=== PATIENT | female | born 1940 | race Caucasian/White ===

== ENCOUNTER 2016-11-15 08:50 | Outpatient (CLI) | payer MEDICARE, OTHER ==
--- NOTE | 2016-11-15 10:43 | MMO ---
BILATERAL SCREENING MAMMOGRAM: INDICATION: Annual exam. COMPARISON: Prior exam dated 10/12/15 and 04/04/08. FINDINGS: The interpretation of this examination was assisted with computer-aided detection. There are scattered fibroglandular elements. There is a cluster of suspicious calcifications present within the upper outer aspect of the right b reast in the 10 o'clock position. There is an associated focal mass associated with the calcificati ons measuring 1.3 cm. There is a spiculated mass within the central posterior right breast measuring 1.3 cm. There are scattered benign-appearing calcifications. IMPRESSION: 1. BI-RADS category 0 - incomplete evaluation - need for additional imaging. There is a cluster of calcifications seen within the right breast 10 o'clock position with associated mass. Spot magnifi cation compression views recommended. Ultrasound may be necessary for further evaluation. 2. Suspected spiculated mass within the right breast central position, posterior depth. Spot magni fication compression views recommended. Ultrasound may be necessary for further evaluation. BIRADS 0: Incomplete: Need Additional Imaging Evaluation and/or Prior Mammograms for Comparison POS: [facility]
== END 2016-11-15 08:51 | disposition home or self-care (01) ==
LOC: SCSMAMMO 08:50
PROVIDERS: ATTEND Family Medicine
DX: Z12.31 Encounter for screening mammogram for malignant neoplasm of breast (principal)
CPT/HCPCS: 77067; G0202

== ENCOUNTER → 2016-12-07 | Day surgery (SDC) | payer MEDICARE, OTHER ==
--- NOTE | 2016-12-07 09:33 | MMO ---
STEREOTACTIC BIOPSY OF THE RIGHT BREAST: History: Right breast calcifications. Comparison: 11-23-16 FINDINGS: Successful right breast stereotactic biopsy. Calcifications are present in the biopsy sample. Biopsy clip was placed. Post procedure mammogram demonstrates the clip in the appropriate position. Technique: Consent obtained for right breast stereotactic biopsy. Patient was placed in the prone position on t he stereotactic table. Right breast was prepped and draped in sterile fashion. The area of concern w as identified. Skin was prepped and draped in sterile fashion. 1% Lidocaine was used for local anest hesia. The stereotactic needle was confirmed in position, pre and post firing. A stereotactic biopsy was performed. A total of 6 10-gauge core samples were obtained. Samples were radiographed. Calcifi cations are present. Biopsy clip was placed. Post clip images demonstrate the clips to be outside th e needle. Patient tolerated the procedure well. No immediate or post procedure complication. POST PROCEDURE MAMMOGRAM: Two views of the right breast demonstrate a surgical clip, appropriately located. IMPRESSION: Successful right breast stereotactic biopsy. POS: [facility]
== END ==
LOC: MAMMO 06:58
PROVIDERS: ATTEND Family Medicine
PROC: 0HBT3ZX Excision of Right Breast, Percutaneous Approach, Diagnostic (ICD-10-PCS; principal; 2016-12-07)
DX: D05.11 Intraductal carcinoma in situ of right breast (principal)
CPT/HCPCS: 19081; 76098; 88305; 88341; 88342; G0206

== ENCOUNTER 2016-12-19 11:58 | Outpatient (CLI) | payer MEDICARE, OTHER ==
[2016-12-19 15:00] LABS: #Basophils 0.1 thou/uL (0.0-0.2); #Eosinphils 0.2 thou/uL (0.0-0.7); #Lymphocytes 2.5 thou/uL (1.20-3.40); #Monocytes 0.7 thou/uL (0.11-0.59); #Neutrophils 4.1 thou/uL (1.40-6.50); %Basophils 0.9 % (0.0-1.0); %Eosinophils 2.8 % (0.0-10.0); %Lymphocytes 33.5 % (21.0-51.0); Hematocrit 39.8 % (36.0-47.0); Mean Platelet Volume 8.9 fL (7.4-10.4); Red Blood Cell (RBC) Count 3.91 mill/uL (4.20-5.40); White Blood Cell (WBC) Count 7.5 thou/uL (4.8-10.8)
[2016-12-19 15:19] LABS: Anion Gap 17 mmol/L (10-20); BUN (Urea Nitrogen) 27 mg/dL (9.8-20.1); Calc. Creatinine Clearance 0 mL/min (70-130); Calcium 10.3 mg/dL (7.8-10.44); Carbon Dioxide 23 mmol/L (23-31); Chloride 105 mmol/L (98-107); Estimated GFR-MDRD 61
--- NOTE | 2016-12-19 16:18 | RAD ---
PA AND LATERAL CHEST: Indication: Pre-operative. Comparison: None. FINDINGS: There is a calcified granuloma within the left upper lobe. There is a calcified lymph node within the left AP window. Calcified granuloma is seen within the right upper lobe. No confluent airspace opaci ty or pleural effusion is evident. There is multilevel spondylosis of the thoracic spine. No acute os seous abnormality is evident. IMPRESSION: No acute cardiopulmonary abnormality. POS: [facility]
--- NOTE | 2016-12-28 21:41 | EKG ---
Test Reason : Blood Pressure : / mmHG Vent. Rate : 056 BPM Atrial Rate : 056 BPM P-R Int : 186 ms QRS Dur : 106 ms QT Int : 452 ms P-R-T Axes : 041 064 034 degrees QTc Int : 436 ms Sinus bradycardia Otherwise normal ECG No previous ECGs available Confirmed by GLADYS RIVERA (2) on 12/28/2016 9:41:15 PM Referred By: YECENIA Confirmed By:GLADYS RIVERA
== END 2016-12-19 11:59 | disposition home or self-care (01) ==
LOC: LABBT 11:58
PROVIDERS: ATTEND Specialist
DX: Z01.818 Encounter for other preprocedural examination (principal); D05.11 Intraductal carcinoma in situ of right breast
CPT/HCPCS: 71020; 80048; 85025; 93005; 93010

== ENCOUNTER 2016-12-29 06:53 | Day surgery (SDC) | payer MEDICARE, OTHER ==
[2016-12-19 12:04] VITALS: BMI 31.9
[2016-12-29] MEDS ORDERED: Fentanyl 100 MCG/2 ML VIAL ONE ×3 (10:47→11:41)
[2016-12-29] MEDS ORDERED: Midazolam HCl 2 mg/2 ml Vial ONE (10:47)
[2016-12-29] MEDS ORDERED: Bupivacaine/Epinephrine 0.25% 30 ML VIAL ONE ×2 (10:56→12:54)
[2016-12-29] MEDS ORDERED: Isosulfan Blue 50 MG/5 ML VIAL ONE (10:56)
[2016-12-29] MEDS ORDERED: CEFAZOLIN/Water 2 GM/20 ML SYRINGE ONE (11:16)
[2016-12-29] MEDS ORDERED: Ketorolac Tromethamine 30 MG/ML VIAL ONE (11:17)
[2016-12-29] MEDS ORDERED: Dexamethasone 20 MG/5 ML VIAL ONE (11:47)
[2016-12-29] MEDS ORDERED: Propofol 200 MG/20 ML VIAL ONE (11:47)
[2016-12-29] MEDS ORDERED: ePHEDrine/0.9% NaCl/PF SYRINGE 50 mg/10 ml ONE (11:47)
[2016-12-29] MEDS ORDERED: Ondansetron HCl/PF 4 MG/2 ML Vial ONE (11:47)
[2016-12-29] MEDS ORDERED: Lidocaine 2% PF 10 ML AMP (For Epidural Use) ONE (11:47)
[2016-12-29] MEDS ORDERED: PHENYLEPHRINE-NS 100 MCG/ML 10 ML SYRINGE ONE (11:47)
--- NOTE | 2016-12-29 12:21 | NM ---
LYMPHOSCINTIGRAPH RIGHT BREAST: RADIOPHARMACEUTICAL: 0.4 mCi Technetium 99m filtered sulfur colloid injected intradermal. CLINICAL HISTORY: DCIS, status post mammographic-guided needle localization. PROCEDURE: Informed consent was obtained. The patient was escorted to the nuclear medicine procedural suite. T he left breast was prepped and draped in standard sterile fashion. Subsequently, 4 separate intrader mal injections totally 0.4 mCi Technetium 99m sulfur colloid were injected into the periareolar regio n of the left breast. Subsequent scintigraphic imaging does yield a small focus of radiotracer activ ity within the deep upper left breast not well seen on the frontal view due to overlying injection ac tivity. This does indicate a lymph node. IMPRESSION: Right breast lymphoscintigraphy as above. POS: [facility]
--- NOTE | 2016-12-29 14:02 | MMO ---
SPECIMEN RADIOGRAPH: Date: 12/29/16 HISTORY: Evaluate specimen for localized clip. FINDINGS: Specimen radiograph is provided. A few punctate calcifications are seen in the specimen, hear the H-I , 6-7 location. The post biopsy localized clip is in the specimen as well. IMPRESSION: Specimen radiograph as above. POS: [facility]
--- NOTE | 2016-12-29 14:16 | MMO ---
MAMMOGRAPHIC GUIDED NEEDLE AND WIRE LOCALIZATION OF RIGHT BREAST: Date: 12/29/16 CLINICAL HISTORY: DCIS, prior biopsy. PROCEDURE: Informed consent was obtained. The patient was escorted to the procedural suite. The patient's right breast was placed into compression and appropriate prepping and draping was performed in the sterile fashion. Topical anesthesia was achieved with 1% lidocaine. A 7.5 cm Sylmar needle with internal wire was then advanced through the region of interest of the right breast which is denoted with an adjacen t marking clip. The wire was deployed. Confirmation of appropriate positioning was performed with varela gential mammographic views. Needle and wire were secured to the patient's right breast. The patient w as transferred to nuclear medicine department to undergo subsequent right breast lymphoscintigraphy. No procedural complications. IMPRESSION: Technically successful mammographic-guided needle and wire localization of the right breast. POS: [facility]
[2016-12-29] MEDS ORDERED: traMADol HCl 50 MG TAB ONE (15:05)
--- NOTE | 2016-12-30 11:20 | OP ---
DATE OF PROCEDURE: 12/29/2016 PREOPERATIVE DIAGNOSIS: Right breast ductal carcinoma in situ. POSTOPERATIVE DIAGNOSIS: Right breast ductal carcinoma in situ. OPERATIONS PERFORMED: Right breast mammographic needle localized lumpectomy, right axillary sentinel lymph node biopsy, excision of a 2 cm skin lesion from the medial right breast and a 1 cm skin lesio n from the right upper chest wall. SURGEON: Greg Calero M.D. ANESTHESIA: General endotracheal. INDICATIONS: The patient is a 76-year-old white female. She had undergone prior stereotactic biopsy of right breast calcifications. This revealed ductal carcinoma in situ and after discussing options , she has elected to proceed with a right breast lumpectomy and sentinel lymph node biopsy. DESCRIPTION OF OPERATION: Informed consent was obtained. The patient taken to the operating room wh ere general endotracheal anesthesia was obtained with the patient in supine position. She had underg one preoperative lymphoscintigraphy which revealed a right axillary sentinel lymph node. After anest hetic was obtained, the breast was infiltrated with 3 mL of Lymphazurin in the subdermal periareolar tissue and the breast was massaged for five minutes. The right breast and axilla were prepped with ChloraPrep and draped in the usual sterile fashion. I turned my attention first to the two skin lesions. One was on the medial aspect of the right breast and was a little over 2 cm in diameter. This was locally anesthetized with 0.25% Marcaine with epine phrine. The lesion was elliptically excised and passed off the field as a specimen. The wound was c losed in layers with 3-0 and 4-0 Monocryl. Dermabond was placed externally. On the right upper ches t wall lesion, this is also locally anesthetized and excised. This was then closed with single inter rupted suture of 3-0 Monocryl. She additionally had several skin tags within right axilla. These we re each anesthetized and excised, removed from a total of 7. Attention was then turned to the localizing needle that had been placed in Radiology. This was in a true lateral position and was fairly close to the axilla and I therefore decided to perform the lumpe ctomy first so that the needle would not be in the way of the node dissection. I am using the ultrasound to gucci the course of the wire. I then decided the areas that needed to be resected based upon the appearance of the mammogram with a localizing wire in place. A transverse i ncision was marked and locally anesthetized and then created. Dissection was carried through skin an d subcutaneous tissue. I identified the wire on the lateral aspect. I removed the needle at the poi nt and then I saw the needle was 4 cm from its tip. The wire was then mobilized up into the incision and the tissue in which the wire entered was grasped with a couple of Allis clamps and the specimen was dissected in a lateral to medial fashion. There was no area that appeared suspicious for a posit bradley margin. This was removed intact and marked with localizing sutures and passed off the field for specimen mammography. This revealed that the marking clip had been removed in continuity with the sp ecimen. Meticulous hemostasis was obtained within the wound. It was then closed in layers with 3-0 and 4-0 Monocryl suture and Dermabond was placed externally. Additional local anesthetic was infiltr ated during closure. Attention was then turned to the axilla. Again, local anesthetic was infiltrated. A transverse inci mega was created at the inferior axilla. Dissection was carried through skin and subcutaneous tissue . The superficial axillary fascia was incised. Neoprobe was utilized to identify areas of maximum r adio-intensity. I was able to identify one dominant sentinel lymph node that was both bright blue fr om the Lymphazurin and radioactive. This was dissected circumferentially and all investing tissue wa s divided between clamps and 3-0 silk ties. I identified one additional lymph node that had substant ial radioactivity although limited blue dye and this was also dissected circumferentially and removed in a similar fashion. The wound was then closed in layers using 3-0 and 4-0 Monocryl suture. [place] anderson was placed externally. Additional local anesthetic was infiltrated during closure. There were no complications. The patient tolerated the procedure well and was taken to the recovery room in sta ble condition.
== END 2016-12-29 15:38 | disposition home or self-care (01) ==
LOC: SDC 06:53
PROVIDERS: ATTEND Specialist
PROC: 0HBT0ZZ Excision of Right Breast, Open Approach (ICD-10-PCS; principal; 2016-12-29)
DX: D05.11 Intraductal carcinoma in situ of right breast (principal); I10 Essential (primary) hypertension; H40.9 Unspecified glaucoma; M51.36 Other intervertebral disc degeneration, lumbar region; M41.9 Scoliosis, unspecified; Z91.048 Other nonmedicinal substance allergy status; Z79.899 Other long term (current) drug therapy; Z90.710 Acquired absence of both cervix and uterus; Z98.890 Other specified postprocedural states; Z83.3 Family history of diabetes mellitus; Z80.1 Family history of malignant neoplasm of trachea, bronchus and lung; Z82.49 Family history of ischemic heart disease and other diseases of the circulatory system
CPT/HCPCS: 19281; 19301; 38525; 38792; 76098; 78195; 88305; 88307; 88333; 88334; 88342; A9541; Q9968; 88341; J0131; J1100; J1885; J2001; J2250; J2405; J2704; J3010

== ENCOUNTER 2017-01-04 11:43 | Outpatient (CLI) | payer MEDICARE, OTHER | END 2017-01-04 11:44 | disposition home or self-care (01) | LOC: LABBT 11:43 | PROVIDERS: ATTEND Specialist | DX: Z01.818 Encounter for other preprocedural examination (principal); C50.911 Malignant neoplasm of unspecified site of right female breast ==

== ENCOUNTER 2017-01-12 05:59 | Day surgery (SDC) | payer MEDICARE, OTHER ==
[2017-01-04 12:27] VITALS: BMI 32.6
[2017-01-12] MEDS ORDERED: CEFAZOLIN/Water 2 GM/20 ML SYRINGE ONE (06:08)
[2017-01-12] MEDS ORDERED: Ketorolac Tromethamine 30 MG/ML VIAL ONE (06:08)
[2017-01-12] MEDS ORDERED: Fentanyl 100 MCG/2 ML VIAL ONE (06:21)
[2017-01-12] MEDS ORDERED: Midazolam HCl 2 mg/2 ml Vial ONE (06:32)
[2017-01-12] MEDS ORDERED: Bupivacaine/Epinephrine 0.25% 30 ML VIAL ONE ×2 (06:54→08:13)
[2017-01-12] MEDS ORDERED: Acetaminophen 500 MG TAB ONE (09:35)
[2017-01-12] MEDS ORDERED: Lidocaine 1% PF 5 ML VIAL ONE (16:49)
[2017-01-12] MEDS ORDERED: ePHEDrine/0.9% NaCl/PF SYRINGE 50 mg/10 ml ONE (16:49)
[2017-01-12] MEDS ORDERED: Propofol 200 MG/20 ML VIAL ONE (16:49)
[2017-01-12] MEDS ORDERED: Ondansetron HCl/PF 4 MG/2 ML Vial ONE (16:49)
[2017-01-12] MEDS ORDERED: Dexamethasone 20 MG/5 ML VIAL ONE (16:49)
--- NOTE | 2017-01-13 04:20 | OP ---
DATE OF OPERATION: 01/12/2017 PREOPERATIVE DIAGNOSES: Right breast cancer, status post prior right lumpectomy with positive margin s and numerous skin lesions of the anterior chest and upper abdomen. POSTOPERATIVE DIAGNOSES: Right breast cancer, status post prior right lumpectomy with positive neto ns and numerous skin lesions of the anterior chest and upper abdomen. OPERATIONS PERFORMED: Re-excision of right breast lumpectomy, removing the superior margin, excision of 12 separate skin lesions of the lower chest with primary closure of each of these. Each of these lesions was approximately 1 cm in maximum dimension. SURGEON: Greg Calero MD ANESTHESIA: General endotracheal. INDICATIONS: The patient is a 76-year-old white female. She had undergone right breast lumpectomy f or anticipated ductal carcinoma in situ. She was found to actually have invasive ductal carcinoma in the superior margin was positive. Dawson node biopsy was performed which was negative. She is re turned to the operating room at this time for reexcision of the superior margin. She additionally hernandez s numerous potentially concerning skin lesions on the lower chest wall. We will plan to remove 12 of these lesions here today. DESCRIPTION OF OPERATION: Informed consent was obtained. The patient was taken to the operating thu m where general endotracheal anesthesia was obtained with the patient in supine position. Right ash[address] st and chest wall were prepped with ChloraPrep and draped in sterile fashion. Local anesthetic was i nfiltrated using 0.25% Marcaine with epinephrine. Prior lumpectomy incision in the upper outer quadr ant of the right breast was reopened and dissection was carried through skin and subcutaneous tissue. Dissection was carried down into the biopsy cavity. Cavity contents were aspirated. I then dissec angela a sheet of tissue that constituted the superior margin. This was extended somewhat onto the ante rior and somewhat onto the posterior aspect. The flap was dissected about 7-8 mm thick. It was avinash gucci intact. The superior portion of the dissection was carried through entirely normal appearing uni nvolved fatty tissue with no concerning area for further invasion. The specimen was tagged for orien tation and submitted to pathology. Hemostasis was meticulous with electrocautery. The wound was the n closed in layers with 3-0 and 4-0 Monocryl suture. Additional local anesthetic was infiltrated. D ermabond was placed externally. Attention was turned to the numerous pigmented skin lesions of the lower chest. Each of these areas was infiltrated with 0.25% Marcaine with epinephrine and the lesion was excised completely. The skin edges were then approximated using a series of interrupted sutures of 4-0 Prolene. These lesions we re closed between 1 and 4 interrupted sutures depending on the size of the lesion. There were no com plications. Patient tolerated the procedure well and was taken to recovery room in stable condition.
== END 2017-01-12 10:10 | disposition home or self-care (01) ==
LOC: SDC 05:59
PROVIDERS: ATTEND Specialist
PROC: 0HBT0ZZ Excision of Right Breast, Open Approach (ICD-10-PCS; principal; 2017-01-12)
DX: D05.11 Intraductal carcinoma in situ of right breast (principal); I10 Essential (primary) hypertension; H40.9 Unspecified glaucoma; M72.2 Plantar fascial fibromatosis; M51.36 Other intervertebral disc degeneration, lumbar region; M41.9 Scoliosis, unspecified; Z17.0 Estrogen receptor positive status [ER+]; Z79.82 Long term (current) use of aspirin; Z79.899 Other long term (current) drug therapy; Z91.048 Other nonmedicinal substance allergy status; Z98.42 Cataract extraction status, left eye; Z98.41 Cataract extraction status, right eye; Z96.1 Presence of intraocular lens; Z90.710 Acquired absence of both cervix and uterus; Z98.890 Other specified postprocedural states
CPT/HCPCS: 88305; 88307; 88341; 88342; J0131; J1100; J1885; J2001; J2250; J2405; J2704; J3010

== ENCOUNTER 2017-03-28 10:14 | Outpatient (CLI) | payer MEDICARE, OTHER | END 2017-03-28 10:15 | disposition home or self-care (01) | LOC: BICMAMMO 10:14 | PROVIDERS: ATTEND Internal Medicine Hematology & Oncology | DX: Z13.820 Encounter for screening for osteoporosis (principal); C50.411 Malignant neoplasm of upper-outer quadrant of right female breast; N95.9 Unspecified menopausal and perimenopausal disorder | CPT/HCPCS: 77080 ==

== ENCOUNTER 2018-01-16 13:57 | Outpatient (CLI) | payer MEDICARE, OTHER | END 2018-01-16 13:58 | disposition home or self-care (01) | LOC: BICMAMMO 13:57 | PROVIDERS: ATTEND Specialist | DX: D05.11 Intraductal carcinoma in situ of right breast (principal) | CPT/HCPCS: 77066; G0279 ==

== ENCOUNTER 2018-05-01 10:24 | Outpatient (CLI) | payer MEDICARE, OTHER ==
--- NOTE | 2018-05-01 10:56 | BD ---
BONE DENSITOMETRY USING DEXA: HISTORY: Postmenopausal screening for osteoporosis. FINDINGS: LUMBAR SPINE BMD (g/cm2) T-SCORE Z-SCORE L1 1.137 1.3 3.7 L2 1.040 0.1 2.7 L3 1.068 -0.1 2.6 L4 1.249 1.7 4.5 TOTAL 1.124 0.7 3.3 NECK: 0.665 -1.7 0.6 TOTAL: 0.955 0.1 2.1 There is an interval reduction of 0.3% in the BMD of the lumbar spine and an improvement of 2.6% in t he BMD of the proximal femur since 10/12/2015. The 10 year fracture risk for a major osteoporotic fracture is 13% and for a hip fracture is 3.1%. IMPRESSION: Osteopenia. POS: [facility]
== END 2018-05-01 10:25 | disposition home or self-care (01) ==
LOC: BICMAMMO 10:24
PROVIDERS: ATTEND Internal Medicine Hematology & Oncology
DX: M85.859 Other specified disorders of bone density and structure, unspecified thigh (principal); C50.411 Malignant neoplasm of upper-outer quadrant of right female breast; Z78.0 Asymptomatic menopausal state
CPT/HCPCS: 77080

== ENCOUNTER 2018-05-07 12:56 | Outpatient (CLI) | payer MEDICARE, OTHER ==
--- NOTE | 2018-05-07 15:05 | RAD ---
CERVICAL SPINE THREE VIEWS: 05/07/2018 HISTORY: Bilateral hand numbness. Dysarthria. Imbalance. TECHNIQUE: Lateral neutral, flexion, and extension radiographs of the cervical spine are provided. FINDINGS: The neutral lateral radiograph demonstrates disk space narrowing and degenerative endplate change wit h anterior osteophyte formation at C3-C4, C4-C5, C5-C6, and C6-C7. On the neutral lateral exam, ther e is no significant anterolisthesis or retrolisthesis. Extension imaging and flexion imaging also de monstrate no significant anterolisthesis or retrolisthesis. No prevertebral soft tissue swelling. IMPRESSION: Multilevel degenerative changes of the cervical spine. POS: [facility]
--- NOTE | 2018-05-07 15:18 | MRI ---
MRI CERVICAL SPINE WITHOUT CONTRAST: Date: 05/07/18 Multiplanar, multisequential imaging of the cervical spine obtained. INDICATION: Neck pain. Upper extremity numbness. Dysarthria and imbalance. FINDINGS: Cervical vertebra maintain height and exhibit normal signal. Degenerative changes are seen throughout the cervical spine. Mild loss of disc space at all levels. Degenerative osteophytes are present. At C2-3, posterior disc bulge and spondylosis is present, flattening the anterior thecal sac. Finding s are slightly more pronounced paracentrally to the right. These changes abut the anterior cord parac entrally on the right. At C3-4, disc bulge and spondylosis is prominent centrally and to the left. These changes impinge on and flatten the anterior cord. Disc osteophyte complex projects paracentrally on the left and there i s severe compression of the cord centrally and to the left. There is some mild increased T2 cord sign al at this level suggesting changes of myelomalacia within the cord. Left foraminal stenosis is prese nt. At C4-5, mild disc bulge and spondylosis effaces the anterior subarachnoid space. Mild left foraminal narrowing. No significant cord impingement. At C5-6, posterior disc bulge and spondylosis impinges on and mildly indents and flattens the anterio r cord. Mild foraminal narrowing due to facet and uncinate hypertrophy. No definite cord signal. At C6-7, disc bulge and spondylosis abuts and mildly impinges on the anterior cord, slightly more pro nounced paracentrally on the left. Bilateral foraminal encroachment more prominent on the left due to facet and uncinate hypertrophy. At C7-T1, there is no significant abnormality. IMPRESSION: 1. Moderate to severe cervical canal stenosis at C3-4 where there is flattening of the cord paracent rally on the left with evidence of myelomalacia as described above. 2. Disc bulge and spondylosis is also prominent at C5-6 and C6-7 where there is cord impingement as described above. POS: [facility]
== END 2018-05-07 12:57 | disposition home or self-care (01) ==
LOC: TBSIIMAG 12:56 → SCSMRI 12:57
PROVIDERS: ATTEND Neurological Surgery
DX: R47.1 Dysarthria and anarthria (principal); R26.89 Other abnormalities of gait and mobility; M47.812 Spondylosis without myelopathy or radiculopathy, cervical region; M48.02 Spinal stenosis, cervical region; M50.922 Unspecified cervical disc disorder at C5-C6 level; G95.89 Other specified diseases of spinal cord
CPT/HCPCS: 72040; 72141

== ENCOUNTER 2018-08-07 10:00 | Inpatient (IN) | payer MEDICARE, OTHER ==
[2018-08-07 10:51] VITALS: BMI 29.6
--- NOTE | 2018-08-08 10:49 | HP ---
HISTORY OF PRESENT ILLNESS: Ms. Ambrose is a 78-year-old female who reports to our office for evaluation of myelopathic symptoms. The patient states that for the last two months she states that her hands have not been working well, they did not feel like her own, and she states that she has had difficulty doing the buttons on her blouse unless she looks at them. It took her minutes to do the bottom button on her top this morning. The patient states that her balance issues are "okay." She has some pain in her left upper arm. She states she will drop pills if she does not look at them closely and she states that her hands feel "wrinkly." The patient states that approximately 4 months ago she woke up and was unable to move her neck. This lasted for a few hours and she has not experienced this since. REVIEW OF SYSTEMS: A 10-point review of systems has been completed and is negative other than stated in the above HPI. PAST MEDICAL HISTORY: 1. Hypertension. 2. Glaucoma. 3. Eczema. 4. Plantar fasciitis. 5. Gallstones. 6. Lumbar degenerative disk disease. 7. Mild scoliosis. 8. invasive ductal carcinoma with DCIS. Dr. Dillon, Oncology and Dr. Calero, surgeon. PAST SURGICAL HISTORY: 1. Complete hysterectomy in 2007. 2. Laparoscope in 1978. 3. Cataract surgery bilaterally in 2017. 4. Lumpectomy in 2017. FAMILY HISTORY: Father is of cirrhosis of the liver, diagnosed with diabetes and stroke. Mother is of lung cancer and adrenal gland cancer. SOCIAL HISTORY: The patient is a nonsmoker. Denies alcohol. She is retired, . MEDICATIONS: 1. Pazeo. 2. Latanoprost. 3. Atenolol. 4. Losartan. 5. Hydrochlorothiazide. 6. Fish oil. 7. Ocuvite Lutein. 8. Probiotic. ALLERGIES: LISINOPRIL, ERYTHROMYCIN, CALCIUM. PHYSICAL EXAMINATION: HEENT: Head is normocephalic and atraumatic. Pupils are equal, round, and reactive to light. Extraocular movements are intact. Hearing is intact. NECK: Normal, soft, and supple. No masses are noted. Range of motion is intact. Nonpainful muscular soreness bilaterally. NEUROLOGIC: Awake, alert, and oriented x3. Memory, attention, fund of knowledge, and language are normal. Cranial nerves grossly intact. Upper extremities; 5/5 bilateral strength in deltoids, biceps, triceps, wrist extension, finger extension; 4/5 finger intrinsics, reflexes symmetric, atrophy of bilateral hands noted. Negative Spurling's. Decreased sensation in the thumb and pinky finger on the left hand compared to right. Lower extremities; 5/5 bilateral strength, hip flexion, knee flexion, knee extension, dorsiflexion, plantar flexion, EHL. Sensation equal bilaterally. Brisk patellar reflexes. No clonus. No Babinski. Gait and station normal. Upright walk, tandem unable to perform. IMAGING STUDIES: MRI; C4-C5 cord compression with T2 signal changes in the cord, critical C5-C6 and C6-C7, there is severe stenosis with flattening of the cord at C4-C5 flexion-extension stable. ASSESSMENT AND PLAN: Cervical disk disorder with myelopathy. There is critically severe stenosis with myelopathy. There is no medication, traction therapy, or injections that will alleviate this. Recommend surgery, ACDF of C3-C4, C5-C6, C6-C7. Informed consent has been given. The patient states she understands the risks and is willing to proceed with surgery. Job ID: [id number]
[2018-08-09] MEDS ORDERED: Thrombin 5000 UNITS/5 ML VIAL ONE (11:46)
[2018-08-09] MEDS ORDERED: Sodium Chloride 0.9% 10 ML ONE (11:46)
[2018-08-09] MEDS ORDERED: Fentanyl 100 MCG/2 ML VIAL ONE ×3 (12:18→17:35)
[2018-08-09] MEDS ORDERED: Ondansetron PF 4 MG/2 ML Vial ONE (16:44)
[2018-08-09] MEDS ORDERED: Bisacodyl 10 MG SUPP PR PRN (17:07)
[2018-08-09] MEDS ORDERED: diphenhydrAMINE 25 MG CAP PO PRN (17:07)
[2018-08-09] MEDS ORDERED: Mag-Al 1200 mg/1200 mg/30 ML UDCUP PO PRN (17:07)
[2018-08-09] MEDS ORDERED: Promethazine 25 MG TAB PO PRN (17:07)
[2018-08-09] MEDS ORDERED: Acetaminophen/Codeine 30-300mg Tablet PO PRN ×2 (17:07)
[2018-08-09] MEDS ORDERED: Promethazine HCl 25 MG/ML VIAL IM PRN ×2 (17:07→17:25)
[2018-08-09] MEDS ORDERED: Milk Of Magnesia 30 ML UDCUP PO PRN (17:07)
[2018-08-09] MEDS ORDERED: tiZANidine HCl 4 MG TAB PO PRN (17:07)
[2018-08-09] MEDS ORDERED: Morphine 4 MG/ML VIAL SLOW IVP PRN (17:07)
[2018-08-09] MEDS ORDERED: Ondansetron PF 4 MG/2 ML Vial IVP PRN (17:07)
[2018-08-09] MEDS ORDERED: Acetaminophen 325 MG TAB PO PRN (17:07)
[2018-08-09] MEDS ORDERED: diphenhydrAMINE 50 MG/ML VIAL IVP PRN (17:07)
[2018-08-09] MEDS ORDERED: Cepastat Lozenges 1 LOZ PO PRN (17:14)
[2018-08-09] MEDS ORDERED: CEFAZOLIN 2 GM in Premix Bag 1 BAG IVPB SCH (17:15)
[2018-08-09] MEDS ORDERED: Promethazine HCl 25 MG/ML VIAL SLOW IVP PRN (17:25)
[2018-08-09] MEDS ORDERED: Ondansetron HCl/PF 4 MG/2 ML Vial IVP PRN (17:25)
--- NOTE | 2018-08-09 18:19 | OP ---
DATE OF PROCEDURE: 08/09/2018 [employer]: Charley Lopes PA-C. PREOPERATIVE INDICATION: Prevent further neurological deterioration. PREOPERATIVE DIAGNOSIS: Multilevel cervical spinal stenosis with myelopathy, most severe at C3-C4, but also present with cord compression at C5-C6 and C6-C7 (different from operative consent, but consistent with office discussion). POSTOPERATIVE DIAGNOSIS: Multilevel cervical spinal stenosis with myelopathy, most severe at C3-C4, but also present with cord compression at C5-C6 and C6-C7. OPERATIVE PROCEDURES: Anterior cervical diskectomy, intervertebral arthrodesis, placement of intervertebral biomechanical device at C3-C4 and at C5-C6 and C6-C7 , anterior cervical plating C3-C4 and separately at C5-C6 and C6-C7, local morselized autograft, morselized allograft, operating microscope, and placement of intervertebral biomechanical device at C3-C4 and at C5-C6 and C6-C7. PREOPERATIVE MEDICATIONS: Ancef 2 g IV. DRAIN NUMBER: Zero. DRAIN TYPE: None. DESCRIPTION OF PROCEDURE: The patient was brought to the operating room. Keeping the neck in normal anatomic alignment, a general endotracheal anesthesia was induced. The patient was carefully positioned on the operating table with her head supported by a donut-shaped headrest. A lateral fluoro radiograph was used to plan our incision. The right side of the neck was sterilely prepped and draped. We opened our planned incision with a 10 blade knife and controlled bleeding with bipolar cautery. We dissected sharply to the platysma and cut this muscle in line with our incision. We continued our dissection medial to the sternocleidomastoid and lateral to the trachea and esophagus. We arrived to the prevertebral space. We placed a marker at C3-C4 and took a lateral fluoro radiograph to confirm the levels upon which we were operating. We then dissected the longus colli muscles off the anterior surface of C3 and C4 and placed distraction pin in each of these two vertebrae. We distracted across the intervening interspace with the [place] distractor. The interspace was incised with a 15 blade knife and we removed disk contents using curettes and rongeurs. As we approached the posterior longitudinal ligament, the operating microscope was brought into the field. Under microscopic magnification and using microsurgical technique, we removed the remainder of the posterior longitudinal ligament. We carefully removed a large calcified osteophyte and disk material from the ventral epidural space from the midline to the left foramen at C3-C4. This was done with multiple bites of 1 mm [place] rongeur and microcurettes. At the completion of our decompression, there was no further indentation of the dura and we decompressed from one nerve root all the way to the other. We prepared the endplates for grafting with curettes, then used a bone rasp to measure the height of the interspace to 7 mm. A 7 mm intervertebral graft was brought into the field. This graft was loaded with demineralized bone matrix and morselized autograft and advanced into the interspace under radiographic guidance to the appropriate depth. The autograft was obtained from osteophytes removed during our decompression, which were morselized and added into demineralized bone matrix to form our fusion substrate. With this interbody graft in place, we removed our distraction pins and dissected inferiorly. We transected the omohyoid and dissected down to C5-C6 and C6-C7. We elevated the longus colli muscles off the anterior spine at C5, C6, and C7, and placed a self-retaining retractor beneath these muscles. We placed distraction pins at C5 and C7 and distracted across the two intervening interspaces. In a similar fashion, we incised the interspace, removed disk contents, and approached the posterior longitudinal ligament. The operative microscope was used for microdissection as we removed the remainder of the posterior longitudinal ligament, all disk material, and all osteophytes from the ventral epidural space. We decompressed from one nerve root to the other across the entire C5-C6 and C6-C7 interspaces. Using a bone rasp, we measured the height of the interspace at C5-C6 to 6 mm and at C6-C7 to 7 mm. The appropriately-sized PEEK intervertebral grafts were brought into the field. These were loaded with demineralized bone matrix, morselized autograft and advanced into the interspaces under radiographic guidance to the appropriate depth. We then removed our distraction pins. The operative microscope was taken out of the field. A 31 mm anterior cervical plate was brought into the field. We affixed the plate to C5, C6, and C7 with 14 mm screws. Fixed angle screws were used at C7 and variable angle screws at C5 and C6. In a similar fashion, a 14 mm plate was brought into the field for fixation at C3-C4. We drilled menhaden vessel pilot holes and affixed the plate using 14 mm screws. Fixed angle screws were used at C4 and variable angle screws at C3. We engaged the locking mechanism over each of the 4 screws at C3-C4 and each of the 6 screws at C5, C6, and C7. AP and lateral fluoro radiographs confirmed adequate position of all our instrumentation. We irrigated copiously with bacitracin irrigation. We reattached the omohyoid muscle. We closed the wound in anatomical layers, and we applied a sterile dressing. This was a clean case, no contamination. Job ID: [id number] [facility]
[2018-08-09] MEDS: Sodium Chloride 0.9% 1,000 ML IV SCH (20:15)
[2018-08-09] MEDS: CEFAZOLIN 2 GM in Premix Bag 1 BAG IVPB SCH (20:15)
[2018-08-09] MEDS: Ketotifen Fumarate 0.025% Ophth Soln 5 ml Bottle EA EYE SCH (20:16)
[2018-08-09] MEDS: Latanoprost 0.005% Ophth Soln 2.5 ml Bottle EA EYE SCH ×2 (20:16→23:29)
[2018-08-10] MEDS: CEFAZOLIN 2 GM in Premix Bag 1 BAG IVPB SCH (04:49)
[2018-08-10] MEDS: Sodium Chloride 0.9% 1,000 ML IV SCH (06:06)
[2018-08-10 07:32] VITALS: BP 132/74; TEMP 97.9
--- NOTE | 2018-08-10 07:33 | PRG ---
DATE OF SERVICE: 08/10/2018 I saw Ms. Ambrose in our hospital room this morning. She is one day out from an anterior cervical diskectomy and fusion at C3-C4 and at C5-C6 and C6-C7. Overnight, Ms. Ambrose had excellent function of her vocal cords and swallowing mechanism. She got through 2 bowls of ice cream. She is having copious amounts of water p.o. and no coughing or aspiration. She says her voice is at her normal pitch currently. Over the night, no fevers have been recorded. Her neurological function is stable to slightly improved and the motor and sensory modalities in the arms. My plan is to have Ms. Ambrose get out of bed, walk with assistance at first and then prove that she is independent for activities of daily living before discharge. She will also have to get through regular food for breakfast and if she does that and is independent, she can be discharged later this morning just before or after lunch. We went over activity restrictions, wound care, and followup arrangements. Job ID: [id number]
[2018-08-10] MEDS: Ketotifen Fumarate 0.025% Ophth Soln 5 ml Bottle EA EYE SCH (08:31)
[2018-08-10] MEDS ORDERED: Anastrozole 1 MG TAB PO SCH (09:00)
[2018-08-10] MEDS ORDERED: Multivit, Therapeutic 1 TAB PO SCH (09:00)
[2018-08-10] MEDS ORDERED: Losartan/Hydrochlorothiazide 100 mg/25 mg Tablet PO SCH (09:00)
[2018-08-10] MEDS ORDERED: Vit A,C & E/Lutein/Minerals Tablet PO SCH (09:00)
== END 2018-08-10 10:44 | disposition home or self-care (01) | DRG 472 ==
LOC: SURG A 08-09 10:16 → SJJU 08-09 18:05
PROVIDERS: ADMIT Neurological Surgery; ATTEND Neurological Surgery
PROC: 0RG2070 Fusion of 2 or more Cervical Vertebral Joints with Autologous Tissue Substitute, Anterior Approach, Anterior Column, Open Approach (ICD-10-PCS; principal; 2018-08-09)
PROC: 0RT30ZZ Resection of Cervical Vertebral Disc, Open Approach (ICD-10-PCS; 2018-08-09)
DX: M50.01 Cervical disc disorder with myelopathy, high cervical region (principal); G95.29 Other cord compression; M50.022 Cervical disc disorder at C5-C6 level with myelopathy; M50.023 Cervical disc disorder at C6-C7 level with myelopathy; M48.02 Spinal stenosis, cervical region; I10 Essential (primary) hypertension; H40.9 Unspecified glaucoma; M51.36 Other intervertebral disc degeneration, lumbar region; Z90.710 Acquired absence of both cervix and uterus; Z98.42 Cataract extraction status, left eye; Z98.41 Cataract extraction status, right eye; Z88.1 Allergy status to other antibiotic agents; Z88.8 Allergy status to other drugs, medicaments and biological substances
CPT/HCPCS: 76000; C1713; C1776; J0690; J2405; J3010; J3490

== ENCOUNTER 2018-09-25 15:04 | Outpatient (CLI) | payer MEDICARE, OTHER ==
--- NOTE | 2018-09-25 15:22 | RAD ---
EXAM: 3 views of the cervical spine HISTORY: Status post cervical fusion COMPARISON: 05/07/2018 FINDINGS: AP, lateral, and open mouth odontoid views of the cervical spine shows normal height and al ignment of the vertebral bodies and intervertebral discs without fracture or subluxation. Postsurgical changes are seen from fusion of C3 and C4 with an anterior plate and screws. Patient is also status post fusion of C5-C7 with a plate and screws. Disc spacers are seen in the intervening disc spaces. No prevertebral soft tissue swelling is seen. IMPRESSION: Postsurgical changes of the cervical spine without evidence of complication.
== END 2018-09-25 15:05 | disposition home or self-care (01) ==
LOC: TBSIIMAG 15:04
PROVIDERS: ATTEND Neurological Surgery
DX: M54.2 Cervicalgia (principal); Z98.890 Other specified postprocedural states
CPT/HCPCS: 72040

== ENCOUNTER 2019-02-01 08:06 | Outpatient (CLI) | payer MEDICARE, OTHER ==
--- NOTE | 2019-02-01 08:54 | MMO ---
Bilateral MAMMO Bilat Diag [facility]. CLINICAL HISTORY: Patient is 78 years old and is seen for diagnostic exam. The patient has no family history of breast cancer. The patient has a history of malignant (generic) in the right breast in 2017. The patient has a history of right Stereotatic Biopsy in 2017 - malignant and right Excisional Biopsy in 2017 - malignant. VIEWS: The views performed were: bilateral craniocaudal with tomosynthesis; bilateral mediolateral oblique with tomosynthesis; and bilateral mediolateral with tomosynthesis. FILMS COMPARED: The present examination has been compared to prior imaging studies performed at [facility] on 11/15/2016, at [facility] on 01/16/2018, and at [facility] on 12/07/2016 and 12/29/2016. This study has been interpreted with the assistance of computer-aided detection. MAMMOGRAM FINDINGS: There are scattered fibroglandular densities. Finding 1: There is a stable post-surgical scar seen in the right breast. Finding 2: There are stable benign appearing calcifications seen in both breasts. Finding 3: There are multiple stable nodules of varying size seen in both breasts. There are no suspicious masses, suspicious calcifications, or new areas of architectural distortion. IMPRESSION: THERE IS NO MAMMOGRAPHIC EVIDENCE OF MALIGNANCY. A ROUTINE FOLLOW-UP MAMMOGRAM IN 1 YEAR IS RECOMMENDED. THE RESULTS OF THIS EXAM WERE SENT TO THE PATIENT. ACR BI-RADS Category 2 - Benign finding MAMMOGRAPHY NOTE: 1. A negative mammogram report should not delay a biopsy if a dominant of clinically suspicious mass is present. 2. Approximately 10% to 15% of breast cancers are not detected by mammography. 3. Adenosis and dense breasts may obscure an underlying neoplasm. Reported by: ADRIENNE LEIVA MD Electonically Signed: [id number]
== END 2019-02-01 08:07 | disposition home or self-care (01) ==
LOC: BICMAMMO 08:06
PROVIDERS: ATTEND Specialist
DX: C50.411 Malignant neoplasm of upper-outer quadrant of right female breast (principal)
CPT/HCPCS: 77066; G0279

== ENCOUNTER 2019-06-06 10:17 | Outpatient (CLI) | payer MEDICARE, OTHER ==
--- NOTE | 2019-06-06 11:47 | BD ---
BONE DENSITOMETRY USING DEXA: Date: 06/06/2019 HISTORY: Postmenopausal screening for osteoporosis. COMPARISON: 05/11/2017 and 10/12/2015. FINDINGS: Lumbar Spine: BMD (g/cm2) L1 1.150 T-Score: 1.5 Z-Score: 3.8 L2 1.099 T-Score: 0.6 Z-Score: 3.3 L3 1.126 T-Score: 0.4 Z-Score: 3.2 L4 1.225 T-Score: 1.5 Z-Score: 4.4 L1-L4 1.154 T-Score: 1.0 Z-Score: 3.7 The bone mineral density of the L1-L4 vertebral region has increased 2.4% from the baseline in 2016; however, measurements were performed on a dissimilar scan type. Left Femoral Neck: 0.669 T-Score: -1.6 Z-Score: 0.7 Left Total Hip: 0.930 T-Score: -0.1 Z-Score: 2.0 The bone mineral density is relatively stable from the baseline in 2016. WHO fracture risk assessment tool estimates 10 year fracture for a major osteoporotic fracture is 14% and for a hip fracture is 8.4%. IMPRESSION: Based on WHO criteria, the patient's bone mineral density is osteopenic. The patient is at moderate r isk for fracture. Bone mineral density is relatively stable from the baseline examination in 2016. POS: AMY
== END 2019-06-06 10:18 | disposition home or self-care (01) ==
LOC: BICMAMMO 10:17
PROVIDERS: ATTEND Internal Medicine Hematology & Oncology
DX: M85.852 Other specified disorders of bone density and structure, left thigh (principal); C50.411 Malignant neoplasm of upper-outer quadrant of right female breast; Z78.0 Asymptomatic menopausal state
CPT/HCPCS: 77080

== ENCOUNTER 2020-02-03 10:17 | Outpatient (CLI) | payer MEDICARE, OTHER ==
--- NOTE | 2020-02-03 12:35 | MMO ---
Bilateral MAMMO Bilat Screen [facility]. CLINICAL HISTORY: Patient is 79 years old and is seen for diagnostic exam. The patient has no family history of breast cancer. The patient has a history of malignant (generic) in the right breast in 2017. The patient has a history of right Stereotatic Biopsy in 2017 - malignant and right Excisional Biopsy in 2017 - malignant. VIEWS: The views performed were: bilateral craniocaudal with tomosynthesis and bilateral mediolateral oblique with tomosynthesis. FILMS COMPARED: The present examination has been compared to prior imaging studies performed at [facility] on 01/16/2018 and 02/01/2019, and at [facility] on 12/07/2016 and 12/29/2016. This study has been interpreted with the assistance of computer-aided detection. MAMMOGRAM FINDINGS: There are scattered fibroglandular densities. Finding 1: There is a stable post-surgical scar seen in the outer region of the right breast. Finding 2: There is a single stable dystrophic calcification seen in the MLO view only seen in the posterior of the right breast. There are no suspicious masses, suspicious calcifications, or new areas of architectural distortion. IMPRESSION: THERE IS NO MAMMOGRAPHIC EVIDENCE OF MALIGNANCY. A ROUTINE FOLLOW-UP MAMMOGRAM IN 1 YEAR IS RECOMMENDED. THE RESULTS OF THIS EXAM WERE SENT TO THE PATIENT. ACR BI-RADS Category 2 - Benign finding MAMMOGRAPHY NOTE: 1. A negative mammogram report should not delay a biopsy if a dominant of clinically suspicious mass is present. 2. Approximately 10% to 15% of breast cancers are not detected by mammography. 3. Adenosis and dense breasts may obscure an underlying neoplasm. Reported by: BRUCE HAYWARD MD Electonically Signed: [id number]
== END 2020-02-03 10:18 | disposition home or self-care (01) ==
LOC: BICMAMMO 10:17
PROVIDERS: ATTEND Specialist
DX: Z12.31 Encounter for screening mammogram for malignant neoplasm of breast (principal); Z85.3 Personal history of malignant neoplasm of breast; Z98.890 Other specified postprocedural states
CPT/HCPCS: 77063; 77067